=== PATIENT | female | born 1990 | race Caucasian/White ===

== ENCOUNTER 2020-09-11 22:43 | Inpatient (IN) | payer MEDICAID ==
[2020-09-11] MEDS ORDERED: Methylergonovine 0.2 MG/1 ML Amp IM PRN (23:21)
[2020-09-11] MEDS ORDERED: Tranexamic Acid 1,000 MG in Sodium Chloride 0.9% 100 ML IV PRN (23:21)
[2020-09-11] MEDS ORDERED: Sodium Chloride 0.9% 2.5 ML Syringe FLUSH PRN (23:21)
[2020-09-11] MEDS ORDERED: Butorphanol 1 MG/ML SDV IVPUSH PRN (23:21)
[2020-09-11] MEDS ORDERED: Misoprostol 200 MCG Tab PO PRN (23:21)
[2020-09-11] MEDS ORDERED: Sodium Chloride 0.9% 10 ML SDV IV PRN (23:21)
[2020-09-11] MEDS ORDERED: Water For Irrigation,Sterile 1,000 ML Container IRR PRN (23:21)
[2020-09-11] MEDS ORDERED: Sodium Chloride 0.9% 10 ML Syringe FLUSH PRN (23:21)
[2020-09-11] MEDS ORDERED: Nalbuphine 10 MG/1 ML Vial IVPUSH PRN (23:21)
[2020-09-11] MEDS ORDERED: Lidocaine 1% 50 ML MDV INJECT PRN (23:21)
[2020-09-11] MEDS ORDERED: Carboprost Tromethamine 250 MCG/1 ML Amp IM PRN (23:21)
[2020-09-11] MEDS ORDERED: Oxytocin/0.9 % Sodium Chloride 30 UNIT/500 ML BAG IV SCH (23:30)
[2020-09-11] MEDS ORDERED: Lactated Ringers 1,000 ML IV SCH (23:30)
[2020-09-11] MEDS ORDERED: Ropivacaine HCl/PF 100 ML ONE (23:42)
--- NOTE | 2020-09-12 00:17 | PCM.PREANE ---
Preanesthetic Assessment - Procedure Proposed Procedure: MEHUL - Anesthesia/Transfusion/Family Hx Anesthesia History: Prior Anesthesia Without Reaction Family History of Anesthesia Reaction: No Transfusion History: No Prior Transfusion(s) - Review of Systems General: No Symptoms Pulmonary: No Symptoms Cardiovascular: No Symptoms Gastrointestinal: No Symptoms Neurological: No Symptoms Other: Reports: None - Physical Assessment Height: 5 ft 9 in Weight: 77.111 kg ASA Class: 2 Mental Status: Alert & Oriented x3 Dentition: Reports: Normal Dentition ROM/Head Extension: Full Lungs: Clear to Auscultation, Normal Respiratory Effort Cardiovascular: Regular Rate, Regular Rhythm - Lab Values: Laboratory Last Values WBC 13.30 K/uL (4.0-11.0) H 09/11/20 23:15 RBC 3.61 M/uL (4.30-5.90) L 09/11/20 23:15 Hgb 11.4 g/dL (12.0-16.0) L 09/11/20 23:15 Hct 33.7 % (36.0-46.0) L 09/11/20 23:15 MCV 93.4 fL (80.0-98.0) 09/11/20 23:15 MCH 31.6 pg (27.0-32.0) 09/11/20 23:15 MCHC 33.8 g/dL (31.0-37.0) 09/11/20 23:15 RDW Std Deviation 47.6 fl (28.0-62.0) 09/11/20 23:15 RDW Coeff of [place] 14 % (11.0-15.0) 09/11/20 23:15 Plt Count 301 K/uL (150-400) 09/11/20 23:15 MPV 10.40 fL (7.40-12.00) 09/11/20 23:15 Nucleated RBC % 0.0 /100WBC 09/11/20 23:15 Nucleated RBCs # 0 K/uL 09/11/20 23:15 - Allergies Allergies/Adverse Reactions: Allergies Allergy/AdvReac Type Severity Reaction Status Date / Time No Known Allergies Allergy Verified 08/14/20 15:18 - Acknowledgements Anesthesia Type Planned: Epidural Pt an Appropriate Candidate for the Planned Anesthesia: Yes Alternatives and Risks of Anesthesia Discussed w Pt/Guardian: Yes Pt/Guardian Understands and Agrees with Anesthesia Plan: Yes PreAnesthesia Questionnaire HEENT History: Reports: None Cardiovascular History: Reports: None Respiratory History: Reports: None Gastrointestinal History: Reports: None Genitourinary History: Reports: None 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[employer] BANK History: Reports: : 2 Para: 1 Musculoskeletal History: Reports: None Neurological History: Reports: None Psychiatric History: Reports: None Endocrine/Metabolic History: Reports: None Hematologic History: Reports: None Immunologic History: Reports: None Dermatologic History: Reports: Other (See Below) Other Dermatologic History: breast biopsy negative - Past Surgical History Female Surgical History: Reports: Section - Past Imaging History Past Imaging History: Reports: None - HOME MEDS Home Medications: Home Meds Pnv No.95/Ferrous Fum/Folic AC [ Tablet] 1 tab PO DAILY 08/14/20 [History] - CURRENT (IN HOUSE) MEDS Current Meds: Current Medications Butorphanol Tartrate (Butorphanol 1 Mg/Ml Sdv) 1 mg IVPUSH Q1H PRN PRN Reason: Pain Carboprost Tromethamine (Carboprost Tromethamine 250 Mcg/1 Ml Amp) 250 mcg IM ASDIRECTED PRN PRN Reason: Post Hemorrhage Oxytocin/Sodium Chloride (Oxytocin 30 Unit/500 Ml-Ns) 30 unit in 500 mls @ 50 mls/hr IV TITRATE ISAAK Tranexamic Acid 1,000 mg/ (Sodium Chloride) 110 mls @ 660 mls/hr IV ONETIME PRN PRN Reason: Bleeding Lactated Ringer's (Ringers, Lactated) 1,000 mls @ 150 mls/hr IV ASDIRECTED ISAAK Lidocaine HCl (Lidocaine 1% 50 Ml Mdv) 50 ml INJECT ONETIME PRN PRN Reason: Laceration repair Methylergonovine Maleate (Methylergonovine 0.2 Mg/1 Ml Amp) 0.2 mg IM ASDIRECTED PRN PRN Reason: Post Hemorrhage Misoprostol (Misoprostol 200 Mcg Tab) 200 mcg PO ONETIME PRN PRN Reason: Post Hemorrhage Nalbuphine HCl (Nalbuphine 10 Mg/1 Ml Vial) 10 mg IVPUSH Q1H PRN PRN Reason: Pain (severe 7-10) Sodium Chloride (Sodium Chloride 0.9% 10 Ml Syringe) 10 ml FLUSH ASDIRECTED PRN PRN Reason: Keep Vein Open Sodium Chloride (Sodium Chloride 0.9% 2.5 Ml Syringe) 2.5 ml FLUSH ASDIRECTED PRN PRN Reason: Keep Vein Open Sodium Chloride (Sodium Chloride 0.9% 10 Ml Sdv) 10 ml IV ASDIRECTED PRN PRN Reason: IV Use Sterile Water (Water For Irrigation,Sterile 1,000 Ml Container) 1,000 ml IRR DIRECTED PRN PRN Reason: delivery Discontinued Medications Ropivacaine (Naropin 0.2%) Confirm Administered Dose 100 mls @ as directed .ROUTE .[facility]-MED ONE Stop: 09/11/20 23:43
[2020-09-12] MEDS ORDERED: Lidocaine 2% with EPINEPHrine 1:200,000 20 ML SDV ONE (04:47)
[2020-09-12] MEDS ORDERED: Sodium Chloride 0.9% 20 ML ONE (04:49)
[2020-09-12] MEDS ORDERED: ceFAZolin 1 GM Vial ONE (04:49)
[2020-09-12] MEDS ORDERED: Morphine PF 10 MG/10 ML SDV ONE (04:49)
[2020-09-12] MEDS ORDERED: Citric Acid/Sodium Citrate Solution 30 ML Cup PO ONE (05:22)
[2020-09-12] MEDS ORDERED: Sodium Chloride 0.9% 10 ML Syringe FLUSH PRN (05:22)
[2020-09-12] MEDS ORDERED: ceFAZolin 2 GM in Premix Bag 1 BAG IV ONE (05:22)
[2020-09-12] MEDS ORDERED: Sodium Chloride 0.9% 10 ML SDV IV PRN (05:22)
[2020-09-12] MEDS ORDERED: Sodium Chloride 0.9% 2.5 ML Syringe FLUSH PRN (05:22)
[2020-09-12] MEDS ORDERED: Midazolam 1 MG/ML 2 ML SDV ONE (05:26)
[2020-09-12] MEDS ORDERED: Lactated Ringers 1,000 ML IV SCH (05:30)
[2020-09-12] MEDS ORDERED: Ketorolac 30 MG/ML SDV ONE (05:57)
[2020-09-12] MEDS ORDERED: Bisacodyl 10 MG Supp RECTAL PRN (06:13)
[2020-09-12] MEDS ORDERED: Lanolin 100% Cream 7 GM Tube TOP PRN (06:13)
[2020-09-12] MEDS ORDERED: Oxytocin 10 Units/1 ML SDV IM PRN (06:13)
[2020-09-12] MEDS ORDERED: Acetaminophen/oxyCODONE 325-5 MG Tab PO PRN ×2 (06:13→07:43)
[2020-09-12] MEDS ORDERED: diphenhydrAMINE 50 MG/ML SDV IVPUSH PRN ×2 (06:13→07:40)
[2020-09-12] MEDS ORDERED: Ondansetron 4 MG/2 ML SDV IVPUSH PRN (06:13)
[2020-09-12] MEDS ORDERED: Oxytocin/Lactated Ringers 30 UNIT/500 ML BAG IV SCH (06:15)
--- NOTE | 2020-09-12 06:20 | PCM.OPNOTE ---
- General Post-Op/Procedure Note Date of Surgery/Procedure: 09/12/20 Operative Procedure(s): Repeat low-transverse section Findings: Live female , direct occiput posterior position with hyperextended neck, Apgars 9/9, weight 4190g Adhesions of bladder to anterior uterine wall Placenta intact and with 3-vessel cord Pre Op Diagnosis: 29yo @ 39w3d. Trial of labor after . Arrest of descent. Occiput posterior position. GBS negative Post-Op Diagnosis: Same Anesthesia Technique: Epidural Primary Surgeon: Shanique Watson Pathology: Cord blood & gases Fluid Replacement, Intraop: 1,500 Output, Urine Amount: 100 (blood-tinged) EBL in mLs: 800 Complications: None Condition: Good Free Text/Narrative:: 2g Ancef IV given for antibiotic prophylaxis
--- NOTE | 2020-09-12 07:08 | PCM.POSTAN ---
POST ANESTHESIA ASSESSMENT - MENTAL STATUS Mental Status: Alert, Oriented - RESPIRATORY Respiratory Status: Respiratory Rate WNL, Airway Patent, O2 Saturation Stable - CARDIOVASCULAR CV Status: Pulse Rate WNL, Blood Pressure Stable - GASTROINTESTINAL GI Status: No Symptoms - PAIN Pain Score: 2 - POST OP HYDRATION Hydration Status: Adequate & Stable - OBSERVATIONS Free Text/Narrative:: Epidural block level receding down to T10.
--- NOTE | 2020-09-12 07:11 | OR ---
SURGEON: Shanique Watson MD DATE OF PROCEDURE: 09/12/2020 PREOPERATIVE DIAGNOSES: 1. A 29-year-old, G2, P1-0-0-1, at 38 weeks and 3 days' gestation. 2. Trial of labor after . 3. Arrest of descent. 4. Occiput posterior position. 5. Group B Streptococcus negative. POSTOPERATIVE DIAGNOSES: 1. A 29-year-old, G2, P1-0-0-1, at 38 weeks and 3 days' gestation. 2. Trial of labor after . 3. Arrest of descent. 4. Occiput posterior position. 5. Group B Streptococcus negative. PROCEDURE: Repeat low transverse section via Pfannenstiel. PRIMARY SURGEON: Shanique Watson MD ANESTHESIA: Epidural by Dr. Riley. PATHOLOGY: Cord blood and gases. IV FLUIDS: 1500 mL of LR. URINE OUTPUT: 100 mL of blood-tinged urine. ESTIMATED BLOOD LOSS: 800 mL. ANTIBIOTIC PROPHYLAXIS: 2 grams of Ancef IV. FINDINGS: Live female infant in occiput posterior position with hyperextended neck, scores 9 and 9 at 1 and 5 minutes respectively, weight 4190 grams. Adhesions of bladder to anterior uterine wall. Placenta intact with 3-vessel cord. COMPLICATIONS: None. INDICATION: This is a 29-year-old G2, P1-0-0-1, who presented at 38 weeks and 2 days' gestation, complaining of contractions. On presentation, her cervix was found to be 4 cm dilated, which was a change from clinic earlier in the day. She was rama every 2 to 3 minutes. She was admitted to Labor and Delivery for trial of labor after . She had a history of delivery x1 for a breech presentation. The patient received an epidural for pain control. After epidural, she was 6 cm dilated. She progressed to 8 cm dilated after which artificial rupture of membranes occurred with clear fluid noted. She progressed to complete cervical dilation and began pushing. She pushed to +1 station over the course of 1 hour. However, the 's head was in occiput posterior position, and was unable to be manually rotated. At this time, the patient was complaining of increasing pain with her contractions in her back and her side and we discussed continued pushing versus proceeding with repeat delivery. She opted for repeat delivery rather than continued maternal pushing efforts as they were not adequate and the fetus was felt to be too large for the pelvis. DESCRIPTION OF PROCEDURE: The patient was taken to the operating room where epidural anesthesia was found to be adequate. She was placed in dorsal supine position with a leftward tilt. She was prepared and draped in the normal sterile fashion. A Pfannenstiel skin incision was made using the previous scar with a scalpel and carried through to the underlying layer of fascia with the scalpel. Fascia was incised in the midline and incision extended laterally with curved Elliott scissors. The superior aspect of the fascial incision was grasped with Jazz clamps, elevated, and underlying rectus muscles dissected off bluntly and with curved Elliott scissors. In a similar fashion, the inferior aspect of the fascial incision was grasped with Jazz clamps, elevated, and underlying rectus muscles dissected off bluntly and with the Elliott scissors. Peritoneum was identified in the midline and entered bluntly. The peritoneal incision was extended by layers using the hemostats to separate layers and Bovie to transect. Bladder was noted to be adhered to the uterus anteriorly. A bladder flap was performed in the usual manner. A large Carlos retractor was inserted. A low uterine hysterotomy was created with a scalpel. Incision was extended laterally using manual traction. The 's head was noted to be low in the pelvis with a hyperextended neck and occiput posterior positioning. After multiple attempts with the chin trying to protrude from the hysterotomy, head was then able to be gently rotated and delivered through the hysterotomy. The remainder of the infant was delivered atraumatically. The cord was clamped and cut and was handed off to the awaiting applied statistician and nurse. Cord blood and cord gases were obtained. The placenta was then delivered intact with 3-vessel cord using manual extraction. The uterus was cleared of all clots and debris. The hysterotomy was repaired with a running lock stitch of 0 Vicryl suture. The second stitch of the same suture was used to imbricate. [id number]-[id number] sutures were used along with the Bovie to obtain hemostasis of all bleeding areas. The gutters were cleared of all clots. The Carlos retractor was removed. The hysterotomy was inspected and noted to be hemostatic. The muscles were reapproximated with 3-0 Vicryl. Fascia was closed with a running stitch of 0 Vicryl suture. The subcutaneous tissue was closed with a running stitch of 3-0 Vicryl suture. The skin was closed with a subcuticular suture of 4-0 Monocryl. Steri-Strips were placed and pressure dressing was applied. The patient and infant tolerated the delivery well. All sponge, lap and needle counts were correct x3. [id number] / MODL /[id number] MTDIveth
[2020-09-12] MEDS ORDERED: Nalbuphine 10 MG/1 ML Vial IVPUSH PRN (07:40)
[2020-09-12] MEDS ORDERED: Naloxone 0.4 MG/ML Syringe IVPUSH PRN (07:40)
[2020-09-12] MEDS ORDERED: fentaNYL 100 MCG/2 ML SDV IVPUSH PRN (07:40)
[2020-09-12] MEDS: Lactated Ringers 1,000 ML IV SCH ×2 (08:18→16:12)
[2020-09-12] MEDS: Ketorolac 30 MG/ML SDV IVPUSH SCH ×3 (09:56→18:54)
[2020-09-12] MEDS: Docusate Sodium 100 MG Cap PO SCH ×2 (10:42→21:10)
--- NOTE | 2020-09-12 19:00 | PCM48HPAN ---
Post Anesthesia Note - EVALUATION WITHIN 48HRS OF ANESTHETIC Vital Signs in Normal Range: Yes Patient Participated in Evaluation: Yes Respiratory Function Stable: Yes Airway Patent: Yes Cardiovascular Function Stable: Yes Hydration Status Stable: Yes Pain Control Satisfactory: Yes Nausea and Vomiting Control Satisfactory: Yes Mental Status Recovered: Yes Vital Signs: Last Vital Signs Temp 36.0 C L 09/12/20 16:30 Pulse 89 09/12/20 16:30 Resp 17 09/12/20 15:00 BP 106/60 09/12/20 16:30 Pulse Ox 98 09/12/20 16:30
[2020-09-13] MEDS: Ketorolac 30 MG/ML SDV IVPUSH SCH ×2 (00:17→06:23)
[2020-09-13] MEDS: Docusate Sodium 100 MG Cap PO SCH ×2 (08:45→20:11)
--- NOTE | 2020-09-13 09:57 | PCM.PNPP ---
- General Info Date of Service: 09/13/20 Functional Status: Reports: Pain Controlled, Tolerating Diet, Ambulating, Urinating, Other (passing flatus) - Review of Systems General: Reports: No Symptoms HEENT: Reports: No Symptoms Pulmonary: Reports: No Symptoms Cardiovascular: Reports: No Symptoms Gastrointestinal: Reports: No Symptoms Genitourinary: Reports: No Symptoms Musculoskeletal: Reports: No Symptoms Skin: Reports: No Symptoms Neurological: Reports: No Symptoms Psychiatric: Reports: No Symptoms - Patient Data Vital Signs - Most Recent: Last Vital Signs Temp 36.8 C 09/13/20 08:50 Pulse 92 09/13/20 08:50 Resp 14 09/13/20 08:50 BP 119/75 09/13/20 08:50 Pulse Ox 95 09/13/20 08:50 Weight - Most Recent: 170 lb I&O - Last 24 Hours: Intake & Output 09/12/20 09/13/20 09/13/20 22:59 06:59 14:59 Intake Total 1950 Output Total 1350 2075 Balance 600 -2075 Lab Results - Last 24 Hours: Laboratory Results - last 24 hr 09/13/20 Range/Units 05:25 Hgb 9.3 L (12.0-16.0) g/dL Hct 28.0 L (36.0-46.0) % Med Orders - Current: Current Medications Bisacodyl (Bisacodyl 10 Mg Supp) 10 mg RECTAL ONETIME PRN PRN Reason: Constipation Butorphanol Tartrate (Butorphanol 1 Mg/Ml Sdv) 1 mg IVPUSH Q1H PRN PRN Reason: Pain Carboprost Tromethamine (Carboprost Tromethamine 250 Mcg/1 Ml Amp) 250 mcg IM ASDIRECTED PRN PRN Reason: Post Hemorrhage Docusate Sodium (Docusate Sodium 100 Mg Cap) 100 mg PO BID [facility] Last Admin: 09/13/20 08:45 Dose: 100 mg Documented by: Emollient Ointment (Lanolin 100% Cream 7 Gm Tube) 0 gm TOP ASDIRECTED PRN PRN Reason: Sore Nipples Last Admin: 09/12/20 16:11 Dose: 1 tube Documented by: Oxytocin/Sodium Chloride (Oxytocin 30 Unit/500 Ml-Ns) 30 unit in 500 mls @ 50 mls/hr IV TITRATE [facility] Tranexamic Acid 1,000 mg/ (Sodium Chloride) 110 mls @ 660 mls/hr IV ONETIME PRN PRN Reason: Bleeding Lactated Ringer's (Ringers, Lactated) 1,000 mls @ 150 mls/hr IV ASDIRECTED [facility] Lactated Ringer's (Ringers, Lactated) 1,000 mls @ 500 mls/hr IV BOLUS [facility] Lactated Ringer's (Ringers, Lactated) 1,000 mls @ 125 mls/hr IV ASDIRECTED [facility] Last Admin: 09/12/20 16:12 Dose: 125 mls/hr Documented by: Oxytocin/Lactated Ringer's (Pitocin In Lr 30 Units/500 Ml) 30 unit in 500 mls @ 999 mls/hr IV TITRATE [facility] Ibuprofen (Ibuprofen 800 Mg Tab) 800 mg PO Q8H PRN PRN Reason: mild pain or fever Lidocaine HCl (Lidocaine 1% 50 Ml Mdv) 50 ml INJECT ONETIME PRN PRN Reason: Laceration repair Methylergonovine Maleate (Methylergonovine 0.2 Mg/1 Ml Amp) 0.2 mg IM ASDIRECTED PRN PRN Reason: Post Hemorrhage Misoprostol (Misoprostol 200 Mcg Tab) 200 mcg PO ONETIME PRN PRN Reason: Post Hemorrhage Nalbuphine HCl (Nalbuphine 10 Mg/1 Ml Vial) 10 mg IVPUSH Q1H PRN PRN Reason: Pain (severe 7-10) Ondansetron HCl (Ondansetron 4 Mg/2 Ml Sdv) 4 mg IVPUSH Q4H PRN PRN Reason: Nausea/Vomiting Oxycodone/Acetaminophen (Acetaminophen/Oxycodone 325-5 Mg Tab) 1 tab PO Q4H PRN PRN Reason: Pain (moderate 4-6) Oxycodone/Acetaminophen (Acetaminophen/Oxycodone 325-5 Mg Tab) 2 tab PO Q4H PRN PRN Reason: Pain (moderate 4-6) Oxytocin (Oxytocin 10 Units/1 Ml Sdv) 10 unit IM ASDIRECTED PRN PRN Reason: Excessive Vaginal Bleeding Sodium Chloride (Sodium Chloride 0.9% 10 Ml Syringe) 10 ml FLUSH ASDIRECTED PRN PRN Reason: Keep Vein Open Sodium Chloride (Sodium Chloride 0.9% 2.5 Ml Syringe) 2.5 ml FLUSH ASDIRECTED PRN PRN Reason: Keep Vein Open Sodium Chloride (Sodium Chloride 0.9% 10 Ml Sdv) 10 ml IV ASDIRECTED PRN PRN Reason: IV Use Sodium Chloride (Sodium Chloride 0.9% 10 Ml Syringe) 10 ml FLUSH ASDIRECTED PRN PRN Reason: Keep Vein Open Sodium Chloride (Sodium Chloride 0.9% 2.5 Ml Syringe) 2.5 ml FLUSH ASDIRECTED PRN PRN Reason: Keep Vein Open Sodium Chloride (Sodium Chloride 0.9% 10 Ml Sdv) 10 ml IV ASDIRECTED PRN PRN Reason: IV Use Sterile Water (Water For Irrigation,Sterile 1,000 Ml Container) 1,000 ml IRR ASDIRECTED PRN PRN Reason: delivery Discontinued Medications Cefazolin Sodium (Cefazolin 1 Gm Vial) Confirm Administered Dose 2 gm .ROUTE .STK-MED ONE Stop: 09/12/20 04:50 Citric Acid/Sodium Citrate (Citric Acid/Sodium Citrate Solution 30 Ml Cup) 30 ml PO ONETIME ONE Stop: 09/12/20 05:23 Diphenhydramine HCl (Diphenhydramine 50 Mg/Ml Sdv) 25 mg IVPUSH Q4H PRN PRN Reason: Itching Stop: 09/13/20 07:42 Fentanyl (Fentanyl 100 Mcg/2 Ml Sdv) 50 mcg IVPUSH Q5M PRN PRN Reason: Pain (severe 7-10) Stop: 09/13/20 07:41 Ropivacaine (Naropin 0.2%) Confirm Administered Dose 100 mls @ as directed .ROUTE .STK-MED ONE Stop: 09/11/20 23:43 Cefazolin Sodium/Dextrose 2 gm (/ Premix) 50 mls @ 100 mls/hr IV ONETIME ONE Stop: 09/12/20 05:51 Sodium Chloride (Normal Saline) Confirm Administered Dose 20 mls @ as directed .ROUTE .STK-MED ONE Stop: 09/12/20 04:50 Ketorolac Tromethamine (Ketorolac 30 Mg/Ml Sdv) 30 mg IVPUSH Q6H ISAAK Stop: 09/13/20 06:16 Last Admin: 09/13/20 06:23 Dose: 30 mg Documented by: Ketorolac Tromethamine (Ketorolac 30 Mg/Ml Sdv) Confirm Administered Dose 30 mg .ROUTE .STK-MED ONE Stop: 09/12/20 05:58 Lidocaine/Epinephrine (Lidocaine 2% With Epinephrine 1:200,000 20 Ml Sdv) Confirm Administered Dose 20 ml .ROUTE .STK-MED ONE Stop: 09/12/20 04:48 Midazolam HCl (Midazolam 1 Mg/Ml 2 Ml Sdv) Confirm Administered Dose 2 mg .ROUTE .STK-MED ONE Stop: 09/12/20 05:27 Morphine Sulfate (Morphine Pf 10 Mg/10 Ml Sdv) Confirm Administered Dose 10 mg .ROUTE .STK-MED ONE Stop: 09/12/20 04:50 Nalbuphine HCl (Nalbuphine 10 Mg/1 Ml Vial) 5 mg IVPUSH Q3H PRN PRN Reason: Pruritis Stop: 09/13/20 07:43 Naloxone HCl (Naloxone 0.4 Mg/Ml Syringe) 0.1 mg IVPUSH ONETIME PRN PRN Reason: Other Stop: 09/13/20 07:41 - Interaction Infant Disposition, : [place] at Bedside Interaction: Holding Infant Infant Feeding: Breastfed Infant; Nursed Well Support Person: - Recovery Exam Fundal Tone: Firm Fundal Level: 1 Fingerbreadths Below Umbilicus Fundal Placement: Midline Lochia Amount: Scant Lochia Color: Rubra/Red Perineum Description: Intact, Minimal Bruising/Swelling Episiotomy/Laceration: Approximated Bladder Status: Voiding - Exam General: Alert, Oriented, Cooperative, No Acute Distress HEENT: Pupils Equal, Pupils Reactive Neck: Supple, Trachea Midline, No JVD Lungs: Normal Respiratory Effort GI/Abdominal Exam: Soft, Non-Tender, No Distention Extremities: Normal Inspection, Normal Range of Motion, Non-Tender, No Pedal Edema Skin: Warm, Dry, Intact Wound/Incisions: Healing Well Neurological: No New Focal Deficit Psy/Mental Status: Alert, Normal Affect, Normal Mood - Problem List Review Problem List Initiated/Reviewed/Updated: Yes - Assessment Assessment:: 29yo POD1 s/p repeat LTCS after TOLAC due to arrest of descent. Stable and recovering well. - Plan Plan:: - vital stable - tolerating PO, ambulating and voiding - Hgb 9.3, bleeding light, denies s/s of anemia - pain controlled Plan for discharge home tomorrow
[2020-09-13] MEDS: Acetaminophen/oxyCODONE 325-5 MG Tab PO PRN ×3 (12:16→23:46)
[2020-09-13] MEDS: Ibuprofen 800 MG Tab PO PRN (19:43)
[2020-09-13] MEDS ORDERED: Acetaminophen/oxyCODONE 325-5 MG Tab ONE (23:42)
[2020-09-14] MEDS ORDERED: Ibuprofen 800 MG Tab ONE (05:07)
[2020-09-14] MEDS: Ibuprofen 800 MG Tab PO PRN (05:14)
[2020-09-14 08:29] VITALS: BP 103/65; PULSE 85
[2020-09-14] MEDS ORDERED: Docusate Sodium 100 MG Cap ONE (08:53)
[2020-09-14] MEDS: Docusate Sodium 100 MG Cap PO SCH (08:56)
--- NOTE | 2020-09-14 10:06 | PCM.PNPP ---
- General Info Date of Service: 09/14/20 Functional Status: Reports: Pain Controlled, Tolerating Diet, Ambulating, Urinating - Review of Systems General: Reports: No Symptoms HEENT: Reports: No Symptoms Pulmonary: Reports: No Symptoms Cardiovascular: Reports: No Symptoms Gastrointestinal: Reports: No Symptoms Genitourinary: Reports: No Symptoms Musculoskeletal: Reports: No Symptoms Skin: Reports: No Symptoms Neurological: Reports: No Symptoms Psychiatric: Reports: No Symptoms - Patient Data Vital Signs - Most Recent: Last Vital Signs Temp 36.6 C 09/14/20 08:28 Pulse 85 09/14/20 08:28 Resp 18 09/14/20 08:28 BP 103/65 09/14/20 08:28 Pulse Ox 96 09/14/20 08:28 Weight - Most Recent: 170 lb Med Orders - Current: Current Medications Bisacodyl (Bisacodyl 10 Mg Supp) 10 mg RECTAL ONETIME PRN PRN Reason: Constipation Butorphanol Tartrate (Butorphanol 1 Mg/Ml Sdv) 1 mg IVPUSH Q1H PRN PRN Reason: Pain Carboprost Tromethamine (Carboprost Tromethamine 250 Mcg/1 Ml Amp) 250 mcg IM ASDIRECTED PRN PRN Reason: Post Hemorrhage Docusate Sodium (Docusate Sodium 100 Mg Cap) 100 mg PO BID [facility] Last Admin: 09/14/20 08:56 Dose: 100 mg Documented by: Emollient Ointment (Lanolin 100% Cream 7 Gm Tube) 0 gm TOP ASDIRECTED PRN PRN Reason: Sore Nipples Last Admin: 09/12/20 16:11 Dose: 1 tube Documented by: Oxytocin/Sodium Chloride (Oxytocin 30 Unit/500 Ml-Ns) 30 unit in 500 mls @ 50 mls/hr IV TITRATE [facility] Tranexamic Acid 1,000 mg/ (Sodium Chloride) 110 mls @ 660 mls/hr IV ONETIME PRN PRN Reason: Bleeding Lactated Ringer's (Ringers, Lactated) 1,000 mls @ 150 mls/hr IV ASDIRECTED ISAAK Lactated Ringer's (Ringers, Lactated) 1,000 mls @ 500 mls/hr IV BOLUS ISAAK Lactated Ringer's (Ringers, Lactated) 1,000 mls @ 125 mls/hr IV ASDIRECTED [facility] Last Admin: 09/12/20 16:12 Dose: 125 mls/hr Documented by: Oxytocin/Lactated Ringer's (Pitocin In Lr 30 Units/500 Ml) 30 unit in 500 mls @ 999 mls/hr IV TITRATE ISAAK Ibuprofen (Ibuprofen 800 Mg Tab) 800 mg PO Q8H PRN PRN Reason: mild pain or fever Last Admin: 09/14/20 05:14 Dose: 800 mg Documented by: Lidocaine HCl (Lidocaine 1% 50 Ml Mdv) 50 ml INJECT ONETIME PRN PRN Reason: Laceration repair Methylergonovine Maleate (Methylergonovine 0.2 Mg/1 Ml Amp) 0.2 mg IM ASDIRECTED PRN PRN Reason: Post Hemorrhage Misoprostol (Misoprostol 200 Mcg Tab) 200 mcg PO ONETIME PRN PRN Reason: Post Hemorrhage Nalbuphine HCl (Nalbuphine 10 Mg/1 Ml Vial) 10 mg IVPUSH Q1H PRN PRN Reason: Pain (severe 7-10) Ondansetron HCl (Ondansetron 4 Mg/2 Ml Sdv) 4 mg IVPUSH Q4H PRN PRN Reason: Nausea/Vomiting Oxycodone/Acetaminophen (Acetaminophen/Oxycodone 325-5 Mg Tab) 1 tab PO Q4H PRN PRN Reason: Pain (moderate 4-6) Last Admin: 09/13/20 23:46 Dose: 1 tab Documented by: Oxycodone/Acetaminophen (Acetaminophen/Oxycodone 325-5 Mg Tab) 2 tab PO Q4H PRN PRN Reason: Pain (moderate 4-6) Oxytocin (Oxytocin 10 Units/1 Ml Sdv) 10 unit IM ASDIRECTED PRN PRN Reason: Excessive Vaginal Bleeding Sodium Chloride (Sodium Chloride 0.9% 10 Ml Syringe) 10 ml FLUSH ASDIRECTED PRN PRN Reason: Keep Vein Open Sodium Chloride (Sodium Chloride 0.9% 2.5 Ml Syringe) 2.5 ml FLUSH ASDIRECTED PRN PRN Reason: Keep Vein Open Sodium Chloride (Sodium Chloride 0.9% 10 Ml Sdv) 10 ml IV ASDIRECTED PRN PRN Reason: IV Use Sodium Chloride (Sodium Chloride 0.9% 10 Ml Syringe) 10 ml FLUSH ASDIRECTED PRN PRN Reason: Keep Vein Open Sodium Chloride (Sodium Chloride 0.9% 2.5 Ml Syringe) 2.5 ml FLUSH ASDIRECTED PRN PRN Reason: Keep Vein Open Sodium Chloride (Sodium Chloride 0.9% 10 Ml Sdv) 10 ml IV ASDIRECTED PRN PRN Reason: IV Use Sterile Water (Water For Irrigation,Sterile 1,000 Ml Container) 1,000 ml IRR ASDIRECTED PRN PRN Reason: delivery Discontinued Medications Cefazolin Sodium (Cefazolin 1 Gm Vial) Confirm Administered Dose 2 gm .ROUTE .STK-MED ONE Stop: 09/12/20 04:50 Citric Acid/Sodium Citrate (Citric Acid/Sodium Citrate Solution 30 Ml Cup) 30 ml PO ONETIME ONE Stop: 09/12/20 05:23 Last Admin: 09/13/20 20:45 Dose: Not Given Documented by: Diphenhydramine HCl (Diphenhydramine 50 Mg/Ml Sdv) 25 mg IVPUSH Q4H PRN PRN Reason: Itching Stop: 09/13/20 07:42 Fentanyl (Fentanyl 100 Mcg/2 Ml Sdv) 50 mcg IVPUSH Q5M PRN PRN Reason: Pain (severe 7-10) Stop: 09/13/20 07:41 Ropivacaine (Naropin 0.2%) Confirm Administered Dose 100 mls @ as directed .ROUTE .STK-MED ONE Stop: 09/11/20 23:43 Cefazolin Sodium/Dextrose 2 gm (/ Premix) 50 mls @ 100 mls/hr IV ONETIME ONE Stop: 09/12/20 05:51 Last Admin: 09/13/20 20:45 Dose: Not Given Documented by: Sodium Chloride (Normal Saline) Confirm Administered Dose 20 mls @ as directed .ROUTE .STK-MED ONE Stop: 09/12/20 04:50 Ketorolac Tromethamine (Ketorolac 30 Mg/Ml Sdv) 30 mg IVPUSH Q6H ISAAK Stop: 09/13/20 06:16 Last Admin: 09/13/20 06:23 Dose: 30 mg Documented by: Ketorolac Tromethamine (Ketorolac 30 Mg/Ml Sdv) Confirm Administered Dose 30 mg .ROUTE .STK-MED ONE Stop: 09/12/20 05:58 Lidocaine/Epinephrine (Lidocaine 2% With Epinephrine 1:200,000 20 Ml Sdv) Confirm Administered Dose 20 ml .ROUTE .STK-MED ONE Stop: 09/12/20 04:48 Last Admin: 09/13/20 20:45 Dose: Not Given Documented by: Midazolam HCl (Midazolam 1 Mg/Ml 2 Ml Sdv) Confirm Administered Dose 2 mg .ROUTE .STK-MED ONE Stop: 09/12/20 05:27 Morphine Sulfate (Morphine Pf 10 Mg/10 Ml Sdv) Confirm Administered Dose 10 mg .ROUTE .STK-MED ONE Stop: 09/12/20 04:50 Nalbuphine HCl (Nalbuphine 10 Mg/1 Ml Vial) 5 mg IVPUSH Q3H PRN PRN Reason: Pruritis Stop: 09/13/20 07:43 Naloxone HCl (Naloxone 0.4 Mg/Ml Syringe) 0.1 mg IVPUSH ONETIME PRN PRN Reason: Other Stop: 09/13/20 07:41 - Infant Interaction Disposition, : at Bedside Interaction: Holding Infant Infant Feeding: Breastfed Infant; Nursed Well Support Person: - Recovery Exam Fundal Tone: Firm Fundal Level: 1 Fingerbreadths Below Umbilicus Fundal Placement: Midline Lochia Amount: Scant Lochia Color: Rubra/Red Perineum Description: Intact, Minimal Bruising/Swelling Episiotomy/Laceration: None Bladder Status: Voiding Urinary Elimination: Voided Other Urinary Elimination, : durham removed at this time, due to void - Exam General: Alert, Oriented, Cooperative, No Acute Distress HEENT: Pupils Equal, Pupils Reactive Neck: Supple, Trachea Midline, No JVD Lungs: Normal Respiratory Effort GI/Abdominal Exam: Soft, Non-Tender, No Distention Extremities: Normal Inspection, Normal Range of Motion, Non-Tender, No Pedal Edema Skin: Warm, Dry, Intact Wound/Incisions: Healing Well Neurological: No New Focal Deficit Psy/Mental Status: Alert, Normal Affect, Normal Mood - Problem List Review Problem List Initiated/Reviewed/Updated: Yes - My Orders Last 24 Hours: My Active Orders 09/14/20 09:58 Ready for Discharge [RC] PER UNIT ROUTINE - Assessment Assessment:: 29yo POD2 s/p repeat LTCS after TOLAC due to arrest of descent. Stable and recovering well. - Plan Plan:: - vital stable - tolerating PO, ambulating and voiding - Hgb 9.3, bleeding light, denies s/s of anemia, start iron supplements - pain controlled Plan for discharge home today
[2020-09-14] MEDS ORDERED: Acetaminophen/oxyCODONE 325-5 MG Tab ONE (11:59)
[2020-09-14] MEDS: Acetaminophen/oxyCODONE 325-5 MG Tab PO PRN (12:07)
== END 2020-09-14 13:00 | disposition home or self-care (01) | DRG 788 ==
LOC: MW.OBCHECK 22:43 → MW.OB 22:45 → MW.OBCHECK 23:43 → OBSVTOIN 09-12 05:24 → MW.OB 09-12 19:55
PROVIDERS: ADMIT Obstetrics & Gynecology; ATTEND Obstetrics & Gynecology
PROC: 10D00Z1 Extraction of Products of Conception, Low, Open Approach (ICD-10-PCS; principal; 2020-09-12)
PROC: 10907ZC Drainage of Amniotic Fluid, Therapeutic from Products of Conception, Via Natural or Artificial Opening (ICD-10-PCS; 2020-09-12)
PROC: 3E0R3BZ Introduction of Anesthetic Agent into Spinal Canal, Percutaneous Approach (ICD-10-PCS; 2020-09-12)
PROC: 00HU33Z Insertion of Infusion Device into Spinal Canal, Percutaneous Approach (ICD-10-PCS; 2020-09-12)
DX: O34.211 Maternal care for low transverse scar from previous cesarean delivery (principal); Z37.0 Single live birth; Z3A.39 39 weeks gestation of pregnancy; O62.1 Secondary uterine inertia; Z20.822 Contact with and (suspected) exposure to COVID-19
CPT/HCPCS: 36415; 51702; 59025; 82803; 85014; 85018; 85027; 86592; 86850; 86900; 86901; A9270-GY; J0690; J1885; J2250; J2270; J2795; J7120; U0002